=== PATIENT | male | born 1990 | race African-American/Black ===

== ENCOUNTER 2018-06-21 15:21 | Emergency (ER) | payer SELFPAY ==
[~2018-06-21] VITALS: Ht 172.7 cm; Wt 69.9 kg
[2018-06-21 15:52] VITALS: BP 142/81
[2018-06-21 19:28] VITALS: BP 127/84
== END 2018-06-21 19:28 | disposition home or self-care (01) ==
LOC: MED 15:21
DX: R42 Dizziness and giddiness (principal); R51 Headache; R11.0 Nausea
CPT/HCPCS: 70450; 99284

== ENCOUNTER 2019-12-26 16:10 | Emergency (ER) | payer SELFPAY ==
[~2019-12-26] VITALS: Ht 175.3 cm; Wt 71.2 kg
[2019-12-26 16:25] VITALS: BP 144/84
--- NOTE | 2019-12-26 17:01 | NUR ---
29 Y/O MALE PRESENTS WITH MIGRAINE BEGINNING THIS MORNING. DENIES VOMITING/ FEVER. 6/10 PAIN ON LEFT SIDE OF HEAD. DENIES BLURRED VISION. PT REPORTS BOUTS OF NAUSEA AND DIZZINESS. DENIES SOB/CP. RESP EVEN AND UNLABORED. LUNG SOUNDS CLEAR IN BILAT LUNG. BOWEL SOUNDS NORMOACTIVE IN ALL QUADRANTS. AAOX4, CAP REFILL <3. NO PMH NKA
[2019-12-26] MEDS: ACETAMINOPHEN 325 MG TAB PO ONE (17:20)
--- NOTE | 2019-12-26 18:00 | NUR ---
PT TRANSFERRED TO CT VIA WHEELCHAIR
--- NOTE | 2019-12-26 18:13 | NUR ---
PT BACK FROM CT
[2019-12-26] MEDS: KETOROLAC 60 MG/2 ML VIAL IM ONE (18:46)
[2019-12-26 18:59] VITALS: BP 144/84
--- NOTE | 2019-12-26 19:00 | NUR ---
Patient discharged with v/s stable. Written and verbal after care instructions given and explained. Patient alert, oriented and verbalized understanding of instructions. Ambulatory with steady gait. All questions addressed prior to discharge. ID band removed. Patient advised to follow up with PMD. Rx of SUMATRIPTAN, IBUPROFEN, ZOFRAN given. Patient educated on indication of medication including possible reaction and side effects. Opportunity to ask questions provided and answered.
== END 2019-12-26 18:59 | disposition home or self-care (01) ==
LOC: MED 16:10
DX: R51 Headache (principal); R42 Dizziness and giddiness; H53.8 Other visual disturbances; R11.0 Nausea
CPT/HCPCS: 70450; 96372; 99284; J1885

== ENCOUNTER 2020-04-02 16:44 | Emergency (ER) | payer OTHER ==
[~2020-04-02] VITALS: Ht 172.7 cm; Wt 72.6 kg
[2020-04-02 16:48] VITALS: BP 127/63
[2020-04-02] MEDS ORDERED: IBUPROFEN 800 MG TAB PO ONE (17:10)
[2020-04-02 18:06] VITALS: BP 127/63
== END 2020-04-02 18:07 | disposition home or self-care (01) ==
LOC: MED 16:44
DX: S63.501A Unspecified sprain of right wrist, initial encounter (principal); X50.9XXA Other and unspecified overexertion or strenuous movements or postures, initial encounter; Y93.89 Activity, other specified; Y92.89 Other specified places as the place of occurrence of the external cause; Y99.8 Other external cause status
CPT/HCPCS: 73130; 99283

== ENCOUNTER 2021-10-03 15:17 | Emergency (ER) | payer SELFPAY ==
[~2021-10-03] VITALS: Ht 172.7 cm; Wt 74.4 kg
[2021-10-03 15:29] VITALS: BP 137/86
--- NOTE | 2021-10-03 15:40 | NUR ---
Patient in tent.
[2021-10-03] MEDS ORDERED: ACET-10509 PO (16:09)
[2021-10-03] MEDS ORDERED: PROM118S5 PO (16:09)
[2021-10-03 16:18] VITALS: BP 137/86
--- NOTE | 2021-10-03 16:18 | NUR ---
Patient discharged with v/s stable. Written and verbal after care instructions given and explained. Patient alert, oriented and verbalized understanding of instructions. Ambulatory with steady gait. All questions addressed prior to discharge. ID band removed. Patient advised to follow up with PMD. Rx of TYLENOL EXTRA STRENGTH, PROMETHAZINE SYRUP given. Patient educated on indication of medication including possible reaction and side effects. Opportunity to ask questions provided and answered.
== END 2021-10-03 16:18 | disposition home or self-care (01) ==
LOC: MED 15:17
DX: J06.9 Acute upper respiratory infection, unspecified (principal); Z79.899 Other long term (current) drug therapy
CPT/HCPCS: 99283

== ENCOUNTER 2021-10-21 14:17 | Emergency (ER) | payer MEDICAID, SELFPAY ==
[~2021-10-21] VITALS: Ht 172.7 cm; Wt 71.2 kg
[~2021-10-21 14:17] MED LIST: ACET-10509 PO; PROM118S5 PO
[2021-10-21 14:39] VITALS: BP 142/78
--- NOTE | 2021-10-21 14:43 | NUR ---
PT SENT TO LOBBY TO WAIT FOR AVAILABLE BED.
--- NOTE | 2021-10-21 15:02 | NUR ---
PT AMBULATED TO BED 4.
[2021-10-21] MEDS ORDERED: KETOROLAC 30 MG/ML VIAL IM ONE (15:30)
[2021-10-21] MEDS ORDERED: ONDANSETRON 4 MG ODT PO ONE (15:50)
--- NOTE | 2021-10-21 16:30 | NUR ---
30 y/o male bib self from home, pt states he recently got luis and luis vaccine and has had headaches for 1 week. Denies nausea, vomiting, diarrhea. Skin is pink/warm/dry. a&o x4 with even and steady gait. Lungs clear bl, heart rate even and regular. Pt denies any fever, cp, sob, or cough at this time. Patient states pain is 10/10 at this time. Vss. patient positioned for comfort. Hob elevated. Bed down. Ermd made aware of pt. pmh: denies nka med: denies
[2021-10-21] MEDS ORDERED: NAPR-54 PO (16:36)
--- NOTE | 2021-10-21 16:48 | NUR ---
Patient discharged with v/s stable. Written and verbal after care instructions given and explained. Patient alert, oriented and verbalized understanding of instructions. Ambulatory with steady gait. All questions addressed prior to discharge. ID band removed. Patient advised to follow up with PMD. Rx of naproxen (sent) given. Patient educated on indication of medication including possible reaction and side effects. Opportunity to ask questions provided and answered.
[2021-10-21 16:58] VITALS: BP 142/78
== END 2021-10-21 16:48 | disposition home or self-care (01) ==
LOC: MED 14:17
DX: G43.909 Migraine, unspecified, not intractable, without status migrainosus (principal); Z79.1 Long term (current) use of non-steroidal anti-inflammatories (NSAID); Z79.899 Other long term (current) drug therapy
CPT/HCPCS: 96372; 99283; J1885; Q0162

== ENCOUNTER 2021-11-05 10:01 | Emergency (ER) | payer MEDICAID ==
[~2021-11-05] VITALS: Ht 172.7 cm; Wt 69.9 kg
[~2021-11-05 10:01] MED LIST changes: +NAPR-54 PO
[2021-11-05 10:26] VITALS: BP 145/92
[2021-11-05] MEDS: ONDANSETRON 4 MG/2 ML VIAL IVP ONE (11:50)
[2021-11-05] MEDS: MORPHINE SULFATE 4 MG/ML SYR IVP ONE (11:50)
[2021-11-05 12:46] LABS: ANION GAP 13.5 (8-16); CARBON DIOXIDE 27.2 mmol/L (21-32); CREATININE 0.9 mg/dL (0.6-1.3); POTASSIUM 4.7 mmol/L (3.5-5.1)
[2021-11-05] MEDS ORDERED: ACET-9234 PO (13:09)
[2021-11-05] MEDS ORDERED: METO-485 PO (13:09)
[2021-11-05 13:25] VITALS: BP 131/70
== END 2021-11-05 13:26 | disposition home or self-care (01) ==
LOC: MED 10:01
DX: R51.9 Headache, unspecified (principal); R11.0 Nausea
CPT/HCPCS: 36415; 70460; 80048; 96374; 96375; 99285; J2270; J2405; Q9967

== ENCOUNTER 2021-11-20 13:20 | Emergency (ER) | payer MEDICAID ==
[~2021-11-20] VITALS: Ht 172.7 cm; Wt 69.9 kg
[~2021-11-20 13:20] MED LIST changes: +ACET-9234 PO; +METO-485 PO
[2021-11-20 13:52] VITALS: BP 138/76
[2021-11-20] MEDS ORDERED: PROM118S5 PO (15:35)
[2021-11-20] MEDS ORDERED: NAPR-54 PO (15:35)
[2021-11-20 15:58] VITALS: BP 138/76
--- NOTE | 2021-11-20 15:58 | NUR ---
Patient discharged with v/s stable. Written and verbal after care instructions given and explained. Patient alert, oriented and verbalized understanding of instructions. Ambulatory with steady gait. All questions addressed prior to discharge. ID band removed. Patient advised to follow up with PMD. Rx of NAPROSYN AND PROMETHAZINE given. Patient educated on indication of medication including possible reaction and side effects. Opportunity to ask questions provided and answered.
--- NOTE | 2021-11-20 17:46 | NUR ---
received call from justyn mejias. pt covid+.
== END 2021-11-20 15:58 | disposition home or self-care (01) ==
LOC: MED 13:20
DX: U07.1 COVID-19 (principal)
CPT/HCPCS: 99283

== ENCOUNTER 2021-12-11 11:57 | Emergency (ER) | payer MEDICAID ==
[~2021-12-11] VITALS: Ht 172.7 cm; Wt 69.9 kg
[2021-12-11 12:37] VITALS: BP 112/93
[2021-12-11] MEDS ORDERED: PROC-62 PO (13:24)
[2021-12-11] MEDS ORDERED: PROCHLORPERAZINE 5 MG TAB PO ONE (13:25)
--- NOTE | 2021-12-11 15:20 | NUR ---
30 Y/O MALE C/O HEADACHE, FEVER, N/V, CHILLS, AND FATIGUE X3DAYS. DENIES PMH NKA per nolan miranda
[2021-12-11 15:29] VITALS: BP 112/93
--- NOTE | 2021-12-11 15:30 | NUR ---
Patient discharged with v/s stable. Written and verbal after care instructions given and explained. Patient alert, oriented and verbalized understanding of instructions. Ambulatory with steady gait. All questions addressed prior to discharge. ID band removed. Patient advised to follow up with PMD. Rx of compazine (sent) given. Patient educated on indication of medication including possible reaction and side effects. Opportunity to ask questions provided and answered.
== END 2021-12-11 15:30 | disposition home or self-care (01) ==
LOC: MED 11:57
DX: J06.9 Acute upper respiratory infection, unspecified (principal); R11.2 Nausea with vomiting, unspecified; Z79.899 Other long term (current) drug therapy
CPT/HCPCS: 99282; Q0164

== ENCOUNTER 2022-05-12 11:08 | Emergency (ER) | payer SELFPAY ==
[~2022-05-12] VITALS: Ht 172.7 cm; Wt 66.3 kg
[~2022-05-12 11:08] MED LIST changes: +PROC-62 PO
[2022-05-12 11:14] VITALS: BP 131/79
--- NOTE | 2022-05-12 11:25 | NUR ---
31YR OLD MALE BIB SELF C/O THROAT PAIN X 3 DAYS. DENIES SOB CP . DENIES FEVER. STATES COUGHING UP BROWISH PHELGM. PT STATES HARD TO SWOLLOW. NO DISTRESS NOTED. HOB ELEVATED. BED AT LOWEST POSITION. NKDA NO MED HX
[2022-05-12] MEDS ORDERED: KETOROLAC 30 MG/ML VIAL IM ONE (11:45)
--- NOTE | 2022-05-12 12:45 | NUR ---
COVID SWAB AND INFLUENZA COLLECTED
[2022-05-12] MEDS ORDERED: PHEN177S23 PO (14:17)
[2022-05-12] MEDS ORDERED: IBUP-1842 PO (14:17)
[2022-05-12 14:47] VITALS: BP 106/72
--- NOTE | 2022-05-12 14:47 | NUR ---
Patient discharged with v/s stable. Written and verbal after care instructions given and explained. Patient alert, oriented and verbalized understanding of instructions. Ambulatory with steady gait. All questions addressed prior to discharge. ID band removed. Patient advised to follow up with PMD. Rx of MOTRIN CHLORASEPTIC given. Patient educated on indication of medication including possible reaction and side effects. Opportunity to ask questions provided and answered.
--- NOTE | 2022-05-12 15:13 | NUR ---
The patient's care was reviewed and supervised by Brandee Mckee, RN, RN.
== END 2022-05-12 14:47 | disposition home or self-care (01) ==
LOC: MED 11:08
DX: J02.9 Acute pharyngitis, unspecified (principal); Z20.822 Contact with and (suspected) exposure to COVID-19
CPT/HCPCS: 87081; 87426; 96372; 99283; J1885

== ENCOUNTER 2023-04-04 21:25 | Emergency (ER) | payer SELFPAY ==
[~2023-04-04] VITALS: Ht 172.7 cm; Wt 69.9 kg
[~2023-04-04 21:25] MED LIST changes: +IBUP-1842 PO; +PHEN177S23 PO; -PROC-62 PO; +PROC-87 PO
[2023-04-04 21:40] VITALS: BP 143/87
--- NOTE | 2023-04-04 21:43 | NUR ---
TO LOBBY A/W BED AMBULATORY
--- NOTE | 2023-04-04 22:14 | NUR ---
Pt to bed 9 after restroom for urine
[2023-04-04] MEDS ORDERED: NACL 0.9% 1,000 ML IV SCH (22:25)
[2023-04-04] MEDS ORDERED: KETOROLAC 30 MG/ML VIAL IVP ONE (22:25)
[2023-04-04 22:31] LABS: APPEARANCE,URINE CLEAR (CLEAR); BILIRUBIN,URINE NEGATIVE (NEGATIVE); BLOOD, URINE NEGATIVE (NEGATIVE); COLOR,URINE YELLOW (YELLOW); LEUKOCYTE ESTERASE ,URINE NEGATIVE (NEGATIVE); NITRITE, URINE NEGATIVE (NEGATIVE); UGLUCOSE TRACE (NEGATIVE)
[2023-04-04 22:55] LABS: BASOPHILS % (AUTO) 0.3 % (0.0-2.0); EOSINOPHILS % (AUTO) 0.3 % (0.0-4.0); HEMATOCRIT 43.3 % (36-52); HEMOGLOBIN 14.9 g/dL (12.0-18.0); LYMPHOCYTES % (AUTO) 23.8 % (20.5-51.1); MEAN CORPUSCULAR HEMOGLOBIN 32 pg (27-31); MEAN CORPUSCULAR HGB CONC 34 g/dL (33-37); MONOCYTES # (AUTO) 0.6 K/uL (0.8-1.0); MONOCYTES % (AUTO) 7.4 % (1.7-9.3); NEUTROPHILS # (AUTO) 5.8 K/uL (1.8-7.7); NEUTROPHILS % (AUTO) 68.2 % (42.2-75.2); PLATELET COUNT (AUTO) 226 K/uL (140-450); RED BLOOD CELL COUNT(AUTO) 4.66 MIL/uL (4.20-6.10); RED CELL DISTRIBUTION WIDTH 14.2 % (11.6-13.7); WHITE BLOOD COUNT (AUTO) 8.5 K/uL (4.8-10.8)
[2023-04-04 23:09] LABS: ANION GAP 12.2 (8-16); CARBON DIOXIDE 30.4 mmol/L (21-32); CREATININE 1.1 mg/dL (0.6-1.3); POTASSIUM 3.6 mmol/L (3.5-5.1); TOTAL BILIRUBIN 0.7 mg/dL (0.0-1.0)
--- NOTE | 2023-04-04 23:26 | NUR ---
REPORT FR DENISE SILVERMAN, ASSUMED CARE , PT IS NOW PAIN FREE . NO N/V.PT UPDATED WITH PLAN OF CARE
[2023-04-04] MEDS ORDERED: IBUP-2213 PO (23:40)
[2023-04-04] MEDS ORDERED: ACET-8905 PO (23:40)
[2023-04-05 00:21] VITALS: BP 126/67
== END 2023-04-05 00:21 | disposition home or self-care (01) ==
LOC: MED 21:25
DX: R10.9 Unspecified abdominal pain (principal); Z79.899 Other long term (current) drug therapy
CPT/HCPCS: 36415; 74176; 80053; 81003; 83690; 85025; 96361; 96374; 99285; J1885; J7030

== ENCOUNTER 2023-11-04 15:40 | Emergency (ER) | payer SELFPAY ==
[~2023-11-04] VITALS: Ht 172.7 cm; Wt 69.9 kg
[~2023-11-04 15:40] MED LIST changes: +ACET-8905 PO; +IBUP-2213 PO
[2023-11-04 15:51] VITALS: BP 142/66; PULSE 106; RESP 15; TEMP 99.3; O2SAT 97
[2023-11-04 16:53] LABS: FLU A ANTIGEN negative (NEGATIVE)
[2023-11-04 16:55] LABS: BASOPHILS % (AUTO) 0.2 % (0.0-2.0); EOSINOPHILS # (AUTO) 0.1 K/uL (0-0.4); EOSINOPHILS % (AUTO) 0.7 % (0.0-4.0); HEMATOCRIT 41.7 % (36-52); HEMOGLOBIN 14.3 g/dL (12.0-18.0); LYMPHOCYTES # (AUTO) 0.7 K/uL (2.0-11.5); LYMPHOCYTES % (AUTO) 5.9 % (20.5-51.1); MEAN CORPUSCULAR HEMOGLOBIN 32 pg (27-31); MEAN CORPUSCULAR HGB CONC 34 g/dL (33-37); MEAN CORPUSCULAR VOLUME 94.2 fL (80-94); MONOCYTES # (AUTO) 1.2 K/uL (0.8-1.0); MONOCYTES % (AUTO) 10.6 % (1.7-9.3); NEUTROPHILS # (AUTO) 9.3 K/uL (1.8-7.7); NEUTROPHILS % (AUTO) 82.6 % (42.2-75.2); PLATELET COUNT (AUTO) 226 K/uL (140-450); RED BLOOD CELL COUNT(AUTO) 4.43 MIL/uL (4.20-6.10); RED CELL DISTRIBUTION WIDTH 13.7 % (11.6-13.7); WHITE BLOOD COUNT (AUTO) 11.3 K/uL (4.8-10.8)
[2023-11-04 16:55] LABS: FLU B ANTIGEN POSITIVE (NEGATIVE)
[2023-11-04 17:13] LABS: ALANINE AMINOTRANSFERASE 17 U/L (12-78); ALBUMIN 3.1 g/dL (3.4-5.0); ALKALINE PHOSPHATASE 81 U/L (50-136); ASPARTATE AMINOTRANSFERASE 17 U/L (15-37); BILIRUBIN,DIRECT 0.2 mg/dL (0.0-0.3); TOTAL BILIRUBIN 0.6 mg/dL (0.0-1.0); TOTAL PROTEIN, SERUM 7.8 g/dL (6.4-8.2)
[2023-11-04] MEDS ORDERED: KETOROLAC 30 MG/ML VIAL IM ONE (17:25)
[2023-11-04] MEDS ORDERED: DEXAMETHASONE 4 MG/ML VIAL PO ONE (17:25)
[2023-11-04] MEDS ORDERED: KETOROLAC 30 MG/ML VIAL ONE (17:30)
[2023-11-04 17:33] LABS: ANION GAP 13.5 (8-16); CALCIUM 9.6 mg/dL (8.5-10.1); CARBON DIOXIDE 27.5 mmol/L (21-32)
[2023-11-04] MEDS ORDERED: IBUP-2213 PO (17:56)
[2023-11-04] MEDS ORDERED: BENZ150C2 PO (17:56)
[2023-11-04] MEDS ORDERED: ACET-10509 PO (17:56)
[2023-11-04 18:10] VITALS: BP 135/70; PULSE 89; RESP 16; TEMP 98; O2SAT 98
== END 2023-11-04 18:10 | disposition home or self-care (01) ==
LOC: MED 15:40
DX: J06.9 Acute upper respiratory infection, unspecified (principal); Z20.822 Contact with and (suspected) exposure to COVID-19; Z79.899 Other long term (current) drug therapy
CPT/HCPCS: 36415; 71045; 80048; 80076; 84484; 85025; 87426; 87804; 93005; 96372; 99285; J1100; J1885